=== PATIENT | female | born 1980 | race Caucasian/White ===

== ENCOUNTER → 2022-05-15 | Day surgery (SDC) | payer BC | END | disposition home or self-care (01) | LOC: FMAMMOTONE 10:06 | PROVIDERS: ATTEND Surgery | PROC: 0HBT3ZX Excision of Right Breast, Percutaneous Approach, Diagnostic (ICD-10-PCS; principal; 2022-05-15) | DX: N60.91 Unspecified benign mammary dysplasia of right breast (principal); N60.31 Fibrosclerosis of right breast | CPT/HCPCS: 19081; 19082; 76098-TC-FY; 87899; 88305-TC; 88341-TC; 88342-TC; A4648 ==

== ENCOUNTER → 2022-06-07 | Day surgery (SDC) | payer BC | END | disposition home or self-care (01) | LOC: FMAMMOTONE 08:58 | PROVIDERS: ATTEND Surgery | PROC: 0HBT3ZX Excision of Right Breast, Percutaneous Approach, Diagnostic (ICD-10-PCS; principal; 2022-06-07) | DX: N60.11 Diffuse cystic mastopathy of right breast (principal); N60.31 Fibrosclerosis of right breast; N60.81 Other benign mammary dysplasias of right breast; N64.89 Other specified disorders of breast; R92.8 Other abnormal and inconclusive findings on diagnostic imaging of breast | CPT/HCPCS: 19081; 76098-TC-FY; 77065-TC; 88305-TC; G0279-TC ==

== ENCOUNTER → 2022-07-03 | Day surgery (SDC) | payer BC | END | disposition home or self-care (01) | LOC: FMAMMOTONE 09:51 | PROVIDERS: ATTEND Surgery | PROC: 0HBU3ZX Excision of Left Breast, Percutaneous Approach, Diagnostic (ICD-10-PCS; principal; 2022-07-03) | DX: N60.31 Fibrosclerosis of right breast (principal); N64.89 Other specified disorders of breast; R92.8 Other abnormal and inconclusive findings on diagnostic imaging of breast | CPT/HCPCS: 19081; 76098-TC-FY; 87899; 88305-TC; A4648 ==

== ENCOUNTER 2022-08-29 04:35 | Day surgery (SDC) | payer BC ==
[2022-08-23 17:45] VITALS: BMI 26.4
[2022-08-29] MEDS ORDERED: MIDAZOLAM HCL 2 MG/2 ML SINGLE DOSE VIAL ONE (12:17)
[2022-08-29] MEDS ORDERED: ceFAZolin SODIUM 1 GM VIAL IVPB ONE (13:07)
[2022-08-29] MEDS ORDERED: LIDOCAINE HCL 1%, 10 MG/ML (20ML VIAL) INF ONE ×2 (13:16)
[2022-08-29] MEDS ORDERED: PROPOFOL 20 ML ONE ×2 (13:21→13:23)
[2022-08-29] MEDS ORDERED: ACETAMINOPHEN 325 MG TABLET (FP) PO PRN (14:10)
[2022-08-29] MEDS ORDERED: IBUPROFEN 800 MG/8 ML IJ IVPB PRN (14:10)
[2022-08-29] MEDS ORDERED: oxyCODONE HCL 5 MG TABLET PO PRN (14:10)
[2022-08-29] MEDS ORDERED: ONDANSETRON 4 MG/2 ML VIAL IVPUSH PRN (14:10)
[2022-08-29 16:22] VITALS: BP 119/66; PULSE 71; RESP 18; TEMP 97.9
== END 2022-08-29 16:00 | disposition home or self-care (01) ==
LOC: JASU-SURG 04:35
PROVIDERS: ATTEND Surgery
PROC: 0HBT0ZX Excision of Right Breast, Open Approach, Diagnostic (ICD-10-PCS; principal; 2022-08-29 11:30)
DX: D24.1 Benign neoplasm of right breast (principal); N60.31 Fibrosclerosis of right breast
CPT/HCPCS: 19281; 76098-TC-FY; 81025; 88307-TC; 94760